=== PATIENT | male | born 1955 | race Caucasian/White ===

== ENCOUNTER 2017-06-28 19:05 | Emergency (ER) | payer OTHER ==
--- NOTE | 2017-06-28 19:30 | CPEKG ---
Heart Rate: 62 RR Interval: 968 P-R Interval: 188 QRSD Interval: 94 QT Interval: 400 QTC Interval: 407 P [place]: 33 QRS [place]: -14 T Wave [place]: 19 EKG Severity - NORMAL ECG - EKG Impression: SINUS RHYTHM Electronically Signed By: Magen Ordonez 28-Jun-2017 23:42:14
--- NOTE | 2017-06-28 19:41 | EDPHY ---
H & P Time Seen by Provider: 06/28/17 19:41 HPI/ROS: Chief complaint. Chest pain HPI. 8-year-old male presents with chest pain that began 2 hours ago and is now getting somewhat better. It began after he was cutting wood and loading it on a truck. He had a sudden onset of epigastric pain that then radiated up into his chest and through to his back. He was briefly lightheaded. He had concerned that this could be from his heart so he took aspirin prior to arrival. He describes the pain as"knotted up". Some nausea. Again it seems like it is getting better. He had no change in his breathing or shortness of breath. His discomfort was not worse with movement, breathing, exertion. No unusual leg symptoms. Tells me that he has had similar symptoms to his back before but the other symptoms he was concerned about his heart as there is family history of heart disease. No unusual leg pain or swelling ROS Constitutional. Near syncope Eyes. no problems with vision ENT. no sore throat, no nasal drainage Cardiovascular. Chest pain Respiratory. no shortness of breath, no cough Abdominal. Upper abdominal pain with nausea but no vomiting or diarrhea . no problems urinating MS. no calf pain/swelling, no neck/back pain, no joint pain Skin. no rash Lymph. no swollen glands Neuro. no headache, no dizziness, no difficulty walking or with speech Past Medical/Surgical History: Healthy Family history father had stents in his 70s and uncle CABG in his 50s Social History: , nonsmoker, no alcohol Smoking Status: Never smoked Physical Exam: General Appearance: Alert well-developed male mild distress vital signs are stable Eyes: Pupils equal and round no pallor or injection. ENT, Mouth: Mucous membranes are moist. Respiratory: There are no retractions, lungs are clear to auscultation. Cardiovascular: Regular rate and rhythm. Gastrointestinal: Abdomen is soft and nontender, no masses, bowel sounds normal. Neurological: Awake and alert, sensory and motor exams grossly normal. Skin: Warm and dry, no rashes. Musculoskeletal: Neck is supple nontender. Extremities symmetrical, full range of motion. Psychiatric: Patient is oriented X 3, there is no agitation. Constitutional: Initial Vital Signs Temperature (C) 37 C 06/28/17 19:15 Heart Rate 78 06/28/17 19:15 Respiratory Rate 14 06/28/17 19:15 Blood Pressure 142/89 H 06/28/17 19:15 O2 Sat (%) 95 06/28/17 19:15 O2 Delivery Mode Room Air Allergies/Adverse Reactions: No Known Allergies Allergy (Unverified 06/28/17 19:15) Home Medications: Medication Instructions Recorded NK [No Known Home Meds] 06/28/17 Medical Decision Making - Diagnostics EKG Interpretation: EKG interpreted by me shows normal sinus rhythm with normal interval and axis. QRS is normal there is no significant ST elevation or depression. No arrhythmia. The rate is 62 Imaging Results: Imaging Impressions Chest X-Ray 06/28/17 20:14 Impression: Equivocal bronchitis/airways disease. Chest/Thorax CTA 06/28/17 20:51 Impression: 1. Motion limited study, with no visible pulmonary embolus. 2. Resolved right axillary adenopathy. 3. Small hiatal hernia. 4. Additional findings, as above. Findings discussed with Magne Ordonez M.D., on June 28, 2017 at 2208. One-view chest x-ray interpreted by me as torturous and slightly large aorta CT angiogram chest shows no evidence for pulmonary embolus or aortic dissection Procedures: IV normal saline, monitor ED Course/Re-evaluation: Serial evaluations and Patient is stable and symptom free Re-evaluation 11:00 p.m. and patient has no symptoms. The patient, his , and I discussed imaging and lab results. He is offered admission however declines and would prefer to follow up as outpatient. Patient's tells me that the patient gets quite worked up because of concern for family history of heart disease. She feels there was some element of anxiety in his presentation tonight We discussed treatment plan including criteria for return importance of follow- up and further evaluation. They expressed understanding and agreement Differential Diagnosis: I considered acute coronary syndrome, pulmonary embolus, aortic dissection - Data Points Laboratory Results: Laboratory Results 06/28/17 19:31 06/28/17 19:31 06/28/17 06/28/17 06/28/17 21:56 19:31 19:31 WBC RBC Hgb Hct MCV MCH MCHC RDW Plt Count MPV Neut % (Auto) Lymph % (Auto) [place] % (Auto) Eos % (Auto) Baso % (Auto) Nucleat RBC Rel Count Absolute Neuts (auto) Absolute Lymphs (auto) Absolute Monos (auto) Absolute Eos (auto) Absolute Basos (auto) Absolute Nucleated RBC Immature Gran % Immature Gran # D-Dimer < 0.27 ug/mLFEU ug/mLFEU (0.00-0.50) Sodium 135 mEq/L mEq/L (134-144) Potassium 3.8 mEq/L mEq/L (3.5-5.2) Chloride 99 mEq/L mEq/L (97-110) Carbon Dioxide 26 mEq/l mEq/l (22-31) Anion Gap 10 mEq/L mEq/L (8-16) BUN 21 mg/dL mg/dL (7-23) Creatinine 1.0 mg/dL mg/dL (0.7-1.3) Estimated GFR > 60 Glucose 100 mg/dL mg/dL (70-100) Calcium 10.0 mg/dL mg/dL (8.5-10.4) Troponin I 0.014 ng/mL ng/mL < 0.012 ng/mL ng/mL (0.000-0.034) (0.000-0.034) Lipase 06/28/17 06/28/17 19:31 16:33 WBC 7.51 10^3/uL 10^3/uL (3.80-9.50) RBC 5.14 10^6/uL 10^6/uL (4.40-6.38) Hgb 15.8 g/dL g/dL (13.7-17.5) Hct 46.2 % % (40.0-51.0) MCV 89.9 fL fL (81.5-99.8) MCH 30.7 pg pg (27.9-34.1) MCHC 34.2 g/dL g/dL (32.4-36.7) RDW 12.9 % % (11.5-15.2) Plt Count 260 10^3/uL 10^3/uL (150-400) MPV 10.1 fL fL (8.7-11.7) Neut % (Auto) 66.6 % % (39.3-74.2) Lymph % (Auto) 22.5 % % (15.0-45.0) [place] % (Auto) 8.5 % % (4.5-13.0) Eos % (Auto) 0.9 % % (0.6-7.6) Baso % (Auto) 1.2 % % (0.3-1.7) Nucleat RBC Rel Count 0.0 % % (0.0-0.2) Absolute Neuts (auto) 5.00 10^3/uL 10^3/uL (1.70-6.50) Absolute Lymphs (auto) 1.69 10^3/uL 10^3/uL (1.00-3.00) Absolute Monos (auto) 0.64 10^3/uL 10^3/uL (0.30-0.80) Absolute Eos (auto) 0.07 10^3/uL 10^3/uL (0.03-0.40) Absolute Basos (auto) 0.09 10^3/uL 10^3/uL (0.02-0.10) Absolute Nucleated RBC 0.00 10^3/uL 10^3/uL (0-0.01) Immature Gran % 0.3 % % (0.0-1.1) Immature Gran # 0.02 10^3/uL 10^3/uL (0.00-0.10) D-Dimer Sodium Potassium Chloride Carbon Dioxide Anion Gap BUN Creatinine Estimated GFR Glucose Calcium Troponin I Lipase 168 IU/L IU/L (23-300) Medications Given: Discontinued Medications Sodium Chloride (Ns) 1,000 mls @ 0 mls/hr IV EDNOW ONE; Wide Open PRN Reason: Protocol Stop: 06/28/17 20:52 Last Admin: 06/28/17 21:14 Dose: 1,000 mls Departure - Departure Disposition: Home, Routine, Self-Care Clinical Impression: Chest pain Qualifiers: Chest pain type: unspecified Qualified Code(s): R07.9 - Chest pain, unspecified Condition: Good Instructions: Chest Pain (ED) Additional Instructions: Easy activity next 1-2 days. Return for any further chest discomfort or trouble breathing. Call coating mixer tender tomorrow to arrange outpatient treadmill and further evaluation. Referrals: NONE *PRIMARY CARE P,. [Primary Care Provider] - As per Instructions Susana Bray MD [Medical Doctor] - 2-3 days, call for appt.
[2017-06-28 19:46] LABS: % IMMATURE GRANULYOCYTES 0.3 % (0.0-1.1); ABSOLUTE IMMATURE GRANULOCYTES 0.02 10^3/uL (0.00-0.10); ADD DIFF? NO; ADD MORPH? NO; ADD SCAN? NO; ATYPICAL LYMPHOCYTE FLAG 0 (0-99); FRAGMENT RBC FLAG 0 (0-99); HEMATOCRIT 46.2 % (40.0-51.0); HEMOGLOBIN 15.8 g/dL (13.7-17.5); LEFT SHIFT FLG 0 (0-99); LIPEMIA HEMOLYSIS FLAG 90 (0-99); MEAN CELL HEMOGLOBIN 30.7 pg (27.9-34.1); MEAN CELL HEMOGLOBIN CONCENTR. 34.2 g/dL (32.4-36.7); MEAN CELL VOLUME 89.9 fL (81.5-99.8); MEAN PLATELET VOLUME 10.1 fL (8.7-11.7); PLATELET CLUMPS FLAG 10 (0-99); PLATELET COUNT 260 10^3/uL (150-400); RED BLOOD CELL COUNT 5.14 10^6/uL (4.40-6.38); RED CELL DISTRIBUTION WIDTH 12.9 % (11.5-15.2)
[2017-06-28 19:56] LABS: ANION GAP 10 mEq/L (8-16); CARBON DIOXIDE 26 mEq/l (22-31); CHLORIDE 99 mEq/L (97-110); GLOMERULAR FILTRATION RATE > 60; GLUCOSE 100 mg/dL (70-100); POTASSIUM 3.8 mEq/L (3.5-5.2); SODIUM 135 mEq/L (134-144)
[2017-06-28 20:06] LABS: TROPONIN I < 0.012 ng/mL (0.000-0.034)
[2017-06-28] MEDS ORDERED: NS 1,000 ML IV ONE (20:51)
[2017-06-28] MEDS ORDERED: IOPAMIDOL (ISOVUE 370) 100 ML BTL IV ONE (21:07)
[2017-06-28 23:30] VITALS: BP 121/92; PULSE 62; RESP 16; TEMP 97.7; O2SAT 93
== END 2017-06-28 23:29 | disposition home or self-care (01) ==
DX: R07.9 Chest pain, unspecified (principal); E86.9 Volume depletion, unspecified
CPT/HCPCS: Q9967